=== PATIENT | female | born 1955 | race Caucasian/White ===

== ENCOUNTER 2017-09-07 06:36 | Day surgery (SDC) | payer OTHER ==
[2015-03-17 19:39] VITALS: BMI 30.7
[2017-09-07] MEDS ORDERED: Lactated Ringer's 1,000 ML IV ONE (08:29)
--- NOTE | 2017-09-07 08:29 | CP.SDSHP ---
Same Day Surgery H & P - Previous Medical/Surgical History Neuro: Other Misc: Other Pain: 4.Moderate Pain Previous Surgical History: COLON POLYPS - Allergies Allergies: Allergies No Known Allergies Allergy (Verified 03/17/15 19:42) - Physical Exam General Appearance: N Vital Signs: Vital Signs 09/07/17 06:51 Temperature 96.9 F L Pulse Rate 86 Respiratory 18 Rate Blood Pressure 121/54 L O2 Sat by Pulse 98 Oximetry Neuro: WNL Heart: WNL Lungs: WNL GI: Other - {Optional Preform as Required} Breast: WNL Abdomen: Other Rectal: Other Integument: WNL : WNL Ortho: WNL ENT: WNL - Impression Pt. Evaluated Today:Candidate for Anesthesia & Procedure: Yes - Date & Time Time: 08:29 Short Stay Discharge - Short Stay Discharge Admitting Diagnosis/Reason for Visit: COLON POLYP, DIARRHEA Disposition: HOME/ ROUTINE
[2017-09-07] MEDS ORDERED: Lidocaine Hydrochloride 5 ML INJ ONE (08:30)
[2017-09-07] MEDS ORDERED: Propofol 10 mg/ml Inj (20 ML) ONE (08:30)
[2017-09-07] MEDS ORDERED: Belladonna-Phenobarbital PO ONE (09:00)
[2017-09-07 09:16] VITALS: TEMP 98.2; O2SAT 100
[2017-09-07 09:45] VITALS: PULSE 65; RESP 18
[2017-09-07 13:45] VITALS: BP 131/70
== END 2017-09-07 09:40 | disposition home or self-care (01) ==
LOC: C.ENDO 06:36
PROVIDERS: ATTEND Specialist
DX: D12.4 Benign neoplasm of descending colon (principal); K64.8 Other hemorrhoids
CPT/HCPCS: 45380; 88305; J2704; J7120